=== PATIENT | female | born 1980 | race African-American/Black ===

== ENCOUNTER 2019-06-01 02:43 | Emergency (ER) | payer OTHER ==
[~2019-06-01] VITALS: Ht 157.5 cm; Wt 105.9 kg
[~2019-06-01 02:43] MED LIST: OLME20TA17 PO; OSEL30CA PO; OXYC1TAB22 PO
[2019-06-01] MEDS ORDERED: FAMOTIDINE 20 MG TABLET. PO ONE (03:00)
[2019-06-01] MEDS ORDERED: diphenhydrAMINE 50 MG/ML VIAL IM ONE (03:00)
[2019-06-01] MEDS ORDERED: methylPREDNISolone SOD SUCC PF 125 MG/2 ML VIAL. IM ONE (03:00)
[2019-06-01] MEDS ORDERED: METH4TAB2 PO (03:00)
--- NOTE | 2019-06-01 03:00 | PHYS DOC ---
Adult General Chief Complaint Chief Complaint: ALLERGIC REACTION HPI HPI Patient is a 39 year old female presents with the chief complaint of rash to lower extremities. States onset was a few hours ago. Unknown cause. Denies any airway issues. States she took benadryl at 1600hrs. Patient rash on back of legs-- associated itch. Review of Systems Review of Systems Constitutional: Denies fever or chills [] Eyes: Denies change in visual acuity, redness, or eye pain [] HENT: Denies nasal congestion or sore throat [] Respiratory: Denies cough or shortness of breath [] Cardiovascular: No additional information not addressed in HPI [] GI: Denies abdominal pain, nausea, vomiting, bloody stools or diarrhea [] : Denies dysuria or hematuria [] Musculoskeletal: Denies back pain or joint pain [] Integument: positive rash Neurologic: Denies headache, focal weakness or sensory changes [] Endocrine: Denies polyuria or polydipsia [] All other systems were reviewed and found to be within normal limits, except as documented in this note. Current Medications Current Medications Current Medications Medications (Trade) Dose Ordered Sig/Maye Start Time Stop Time Status Last Admin Dose Admin Diphenhydramine HCl (Benadryl) 50 mg 1X ONCE 06/01/19 03:00 06/01/19 02:55 DC Famotidine (Pepcid) 40 mg 1X ONCE 06/01/19 03:00 06/01/19 02:55 DC Methylprednisolone Sodium Succinate (SOLU-Medrol 125MG VIAL) 125 mg 1X ONCE 06/01/19 03:00 06/01/19 02:55 DC Allergies Allergies Allergies Coded Allergies Type Severity Reaction Last Updated Verified ciprofloxacin Allergy Intermediate 11/15/14 Yes ciprofloxacin HCl Allergy Intermediate 11/15/14 Yes minocycline Allergy Intermediate 11/15/14 Yes shellfish derived Allergy Intermediate 11/15/14 Yes Physical Exam Physical Exam Constitutional: Well developed, well nourished, no acute distress, non-toxic appearance. [] HENT: Normocephalic, atraumatic, bilateral external ears normal, oropharynx moist, no oral exudates, nose normal. [] Eyes: PERRLA, EOMI, conjunctiva normal, no discharge. [] Neck: Normal range of motion, no tenderness, supple, no stridor. [] Cardiovascular:Heart rate regular rhythm, no murmur [] Lungs & Thorax: No respiratory distress Abdomen: Bowel sounds normal, soft, no tenderness, no masses, no pulsatile masses. [] Skin:hives bilataral lower extremities Back: No tenderness, no CVA tenderness. [] Extremities: No tenderness, no cyanosis, no clubbing, ROM intact, no edema. [] Neurologic: Alert and oriented X 3, normal motor function, normal sensory function, no focal deficits noted. [] Psychologic: Affect normal, judgement normal, mood normal. [] EKG EKG [] Radiology/Procedures Radiology/Procedures [] Course & Med Decision Making Course & Med Decision Making Pertinent Labs and Imaging studies reviewed. (See chart for details) [] Dragon Disclaimer Dragon Disclaimer This electronic medical record was generated, in whole or in part, using a voice recognition dictation system. Departure Departure Impression: Primary Impression: Allergic reaction Disposition: HOME, SELF-CARE Condition: STABLE Patient Instructions: [facility] Methylprednisolone (MEDROL) 4 Mg Tab.ds.pk 1 PKG PO UD, #1 PKG Prov: DANI CM DO 06/01/19 Problem Qualifiers Primary Impression: Allergic reaction Encounter type: initial encounter Qualified Codes: T78.40XA - Allergy, unspecified, initial encounter DANI CM DO Jun 01, 2019 03:00
[2019-06-01 03:03] VITALS: BP 148/91
== END 2019-06-01 03:04 | disposition home or self-care (01) ==
LOC: ER 02:43
DX: T78.40XA Allergy, unspecified, initial encounter (principal); Z88.1 Allergy status to other antibiotic agents; Z91.013 Allergy to seafood
CPT/HCPCS: 99283